=== PATIENT | male | born 1975 | race Caucasian/White ===

== ENCOUNTER → 2016-06-24 | Outpatient (CLI) | payer OTHER ==
--- NOTE | 2016-06-27 07:20 | ECHOCARDIOGRAPHY REPORT ---
DATE OF SERVICE: 06/24/2016 TEST DATE: 06/24/16 MEASUREMENT: LVID end diastolic 5.1 IVS thickness 1.0 LVPW thickness 1.0 Left atrial diameter 3.9 Ejection fraction 60%. FINDINGS: 1. Technical quality is good. 2. The left ventricle is normal in size with normal contractility, systolic function appeared to be normal. Estimated ejection fraction 60%. 3. The left atrium is normal in size. No clot or thrombus were seen within the left atrium. 4. The right atrium and right ventricle are normal in size. No clot or thrombus were seen within the right side. 5. Mitral valve is normal in morphology with mild mitral regurgitation noted by color Doppler flow. No mitral valve prolapse. No mitral valve stenosis. 6. Aortic valve is trileaflet with normal opening and closing pattern. No significant aortic stenosis or regurgitation was seen. 7. Tricuspid valve is normal in morphology with mild tricuspid regurgitation noted by color Doppler flow. Doppler across the tricuspid valve estimated pulmonary artery pressure of 25+ right atrial pressure. 8. Pulmonic valve is functioning normally. 9. No pericardial effusion. CONCLUSION: 1. Normal left ventricular size and systolic function, estimated ejection fraction 60%. 2. Mild mitral and tricuspid regurgitation. 3. Estimated pulmonary artery pressure of 35 mmHg. Job ID: [id number] DocumentID: [id number] Dictated Date: 06/26/2016 14:35:04 Senior Database Administrator Date: 06/26/2016 15:06:57 Dictated By: ACE BOSWELL MD
== END ==
LOC: CARD 15:03
PROVIDERS: ATTEND Internal Medicine Cardiovascular Disease
DX: I25.10 Atherosclerotic heart disease of native coronary artery without angina pectoris (principal); I10 Essential (primary) hypertension; E78.2 Mixed hyperlipidemia
CPT/HCPCS: 93306

== ENCOUNTER → 2016-07-01 | Outpatient (CLI) | payer OTHER ==
[~2016-07-01] VITALS: Ht 188 cm; Wt 145.1 kg
[~2016-07-01] MED LIST: CATHETER FLUSH 10 ML SYR IV PRN
[2016-07-01 09:17] VITALS: BP 133/78
--- NOTE | 2016-07-02 06:35 | STRESS TEST ---
DATE OF SERVICE: 07/01/2016 EXERCISE MYOVIEW STRESS TEST REFERRING PHYSICIAN: No referring physician. Baseline heart rate is 64. Baseline blood pressure 133/78. Baseline EKG is sinus rhythm with no ischemic changes. SUMMARY: The patient was injected with 10.25 mCi of technetium-99 Myoview and the resting images were obtained. Then, the patient started exercising with the baseline heart rate, blood pressure and EKG mentioned above. At minute 7 and 18 seconds, the patient was injected with 30.6 mCi of technetium-99 Myoview. The patient was able to exercise for a total of 8 minutes 20 seconds on standard Edgar protocol, achieving maximum heart rate of 153 which is 85% of maximum expected heart rate. With peak exercise level the EKG was showing nondiagnostic changes. Blood pressure was 214/102. During recovery, heart rate and blood pressure returned to baseline. EKG returned to baseline. The resting and stress images were reviewed and compared in the short axis, horizontal long axis and vertical long axis views. Review of the images showed diaphragmatic attenuation with no significant ischemia or infarction on SPECT images. There is mild decreased uptake at the mid to apical inferolateral wall which is fixed. SSS is 4. SDS 0. TID value is 0.89. On the Gated images, the left ventricle appeared to be normal size with normal contractility. Calculated ejection fraction 56%. CONCLUSION: 1. Good exercise tolerance a total of 8 minutes 20 seconds on standard Edgar protocol, total of 10.1 METS achieving 85% of maximum expected heart rate. 2. Severe hypertensive response to exercise returned to baseline during recovery. 3. Nondiagnostic EKG changes with exercise returned to baseline during recovery. 4. Typical male pattern with no significant ischemia or infarction on SPECT images. 5. Normal left ventricular size with normal contractility, calculated ejection fraction 56%. Job ID: [id number] DocumentID: [id number] Dictated Date: 07/01/2016 11:45:21 Manager Loan Date: 07/01/2016 14:06:17 Dictated By: ACE BOSWELL MD
== END ==
LOC: CARD 08:09
PROVIDERS: ATTEND Internal Medicine Cardiovascular Disease
DX: I25.10 Atherosclerotic heart disease of native coronary artery without angina pectoris (principal); I10 Essential (primary) hypertension; E78.2 Mixed hyperlipidemia
CPT/HCPCS: 78452; 93017

== ENCOUNTER → 2018-04-15 | Outpatient (CLI) | payer BC, OTHER ==
[~2018-04-15] VITALS: Ht 188 cm; Wt 150.6 kg
[~2018-04-15] MED LIST changes: +REGADENOSON 0.4 MG/5 ML SYR (LEXISCAN) IV ONE
--- NOTE | 2018-04-15 18:02 | STRESS TEST ---
DATE OF SERVICE: 04/15/2018 EXERCISE MYOVIEW STRESS TEST REPORT REFERRING PHYSICIAN: Dr. Gregorio's office. Baseline heart rate is 76. Baseline blood pressure is 138/74. Baseline EKG is sinus rhythm with right bundle branch block. In summary, the patient was injected with 10.37 mCi of technetium-99 Myoview and the resting images were obtained. Then, the patient started exercising with a baseline heart rate, blood pressure and EKG mentioned above. The patient was able to exercise for 7 minutes and 30 seconds on standard Edgar protocol. With peak exercise level, EKG was showing minimal nondiagnostic changes. Blood pressure was 200/90. During recovery, heart rate and blood pressure returned to baseline. EKG returned to baseline. The resting and stress images were reviewed and compared in the short axis, horizontal long axis, and vertical long axis views. Review of the images showed diaphragmatic attenuation with decreased uptake at the inferior wall and inferolateral wall with no significant reversibility on the attenuation correction images. There is mild decreased uptake at the inferior apical segment. SSS is 2, SDS 1, and TID value 0.96. On the gated images, the left ventricle appeared to be in normal size with normal contractility. Calculated ejection fraction is 60%. CONCLUSION: 1. Good exercise tolerance, a total of 7 minutes 30 seconds on standard Edgar protocol, total of 9.1 METs, achieving 97% of maximum expected heart rate. 2. Baseline hypertension persisted during the test. 3. Baseline right bundle branch block with nondiagnostic EKG changes with exercise returned to baseline during recovery. 4. Diaphragmatic attenuation with typical male pattern. No significant ischemia or infarction was noted on SPECT images. 5. Normal left ventricular size with normal contractility. Calculated ejection fraction is 60%. Job ID: [id number] DocumentID: [id number] Dictated Date: 04/15/2018 15:41:19 Senior Marketing Associate Date: 04/15/2018 18:01:49 Dictated By: ACE GREGORIO MD
== END ==
LOC: CARD 11:38
PROVIDERS: ATTEND Physician Assistant
DX: I25.10 Atherosclerotic heart disease of native coronary artery without angina pectoris (principal); I10 Essential (primary) hypertension; E78.2 Mixed hyperlipidemia; I21.3 ST elevation (STEMI) myocardial infarction of unspecified site
CPT/HCPCS: 78452; 93017

== ENCOUNTER → 2019-04-30 | Outpatient (CLI) | payer BC | LOC: CARD 12:45 | PROVIDERS: ATTEND Internal Medicine Cardiovascular Disease | DX: E78.2 Mixed hyperlipidemia (principal); I11.9 Hypertensive heart disease without heart failure; I25.10 Atherosclerotic heart disease of native coronary artery without angina pectoris; I34.0 Nonrheumatic mitral (valve) insufficiency; Z82.49 Family history of ischemic heart disease and other diseases of the circulatory system | CPT/HCPCS: 93306 ==

== ENCOUNTER 2019-12-20 12:17 | Outpatient (CLI) | payer BC | END 2019-12-20 12:53 | disposition home or self-care (01) | LOC: SLEEP 12:17 | PROVIDERS: ATTEND Internal Medicine Cardiovascular Disease | DX: G47.33 Obstructive sleep apnea (adult) (pediatric) (principal); G47.10 Hypersomnia, unspecified; I49.9 Cardiac arrhythmia, unspecified; I10 Essential (primary) hypertension; I25.10 Atherosclerotic heart disease of native coronary artery without angina pectoris; E78.2 Mixed hyperlipidemia; Z87.891 Personal history of nicotine dependence ==

== ENCOUNTER 2020-02-20 21:06 | Emergency (ER) | payer BC ==
[~2020-02-20] VITALS: Ht 188 cm; Wt 145.5 kg
--- NOTE | 2020-02-20 21:31 | ED Chest Pain ---
General Chief Complaint: Chest Pain Stated Complaint: COVID+;COUGH;CHEST TIGHTNESS;SOB Source: patient Exam Limitations: no limitations History of Present Illness Date Seen by Provider: Feb 20, 2020 Time Seen by Provider: 21:27 Initial Comments To ER by private vehicle with reports of chest tightness that lasted for about 20 to 30 seconds worse with deep breathing that started at home. It is gone now. No fevers. He is Covid positive and became symptomatic on 02/12/2020. He subsequently tested positive. He went to urgent care today and was given an albuterol inhaler. He was also given dexamethasone on , 02/14/2020. He states he has a history of a heart attack in 2006. He states that his EKG was normal but his troponin was markedly elevated. That was followed with a cardiac catheterization but he did not have any stents placed. He is otherwise healthy except for hypertension and follows with Dr. Gregorio. Timing/Duration: intermittent Severity/Quality: moderate Location: central Radiation: no radiation Activities at Onset: none Allergies and Home Medications Allergies Coded Allergies: No Known Drug Allergies (Unverified , 07/01/16) Patient Home Medication List Home Medication List Reviewed: Yes Review of Systems Review of Systems Constitutional: see HPI EENTM: No Symptoms Reported Respiratory: See HPI, Cough Cardiovascular: See HPI, Chest Pain Gastrointestinal: No Symptoms Reported Genitourinary: No Symptoms Reported Musculoskeletal: no symptoms reported Skin: no symptoms reported Psychiatric/Neurological: No Symptoms Reported Endocrine: No Symptoms Reported Physical Exam Vital Signs Capillary Refill : Height, Weight, BMI Height: 6'2.00" Weight: 332lbs. 0.0oz. [id number]; 42.6 BMI Method: General Appearance: No Apparent Distress, WD/WN, Obese, Other (Alert and oriented very pleasant no distress heart rate is in the 80s and oxygen saturation is 98% on room air after ambulating to room 10 from the [address] lot.) Neck: Full Range of Motion, Normal Inspection Respiratory: Normal Breath Sounds, No Accessory Muscle Use, No Respiratory Distress Cardiovascular: Regular Rate, Rhythm, Normal Peripheral Pulses Gastrointestinal: Normal Bowel Sounds, Non Tender, Soft Extremity: Normal Capillary Refill, Normal Inspection Neurologic/Psychiatric: Alert, Oriented x3 Skin: Normal Color, Warm/Dry Progress/Results/Core Measures Results/Orders My Orders Orders - KEVEN COLORADO APRN Cbc With Automated Diff (02/20/20 21:25) Comprehensive Metabolic Panel (02/20/20 21:25) Procalcitonin (Pct) (02/20/20 21:25) Hs C Reactive Protein (02/20/20 21:25) Troponin I (02/20/20 21:25) Ekg Tracing (02/20/20 21:25) Chest 1 View, Ap/Pa Only (02/20/20 21:25) Ed Iv/Invasive Line Start (02/20/20 21:25) Departure Impression Primary Impression: Chest pain Additional Impression: COVID-19 Disposition: HOME, SELF-CARE Condition: Stable Departure-Patient Inst. Decision time for Depature: 21:30 Referrals: NO,LOCAL PHYSICIAN (PCP/Family) Primary Care Physician Patient Instructions: Coronavirus Disease 2019 (COVID-19) ED Add. Discharge Instructions: 1. Continue current treatment regimen. Return to ER for any worsening. Follow-up with your doctor next week. All discharge instructions reviewed with patient and/or family. Voiced understanding. KEVEN COLORADO APRN Feb 20, 2020 21:31
[2020-02-20 21:44] LABS: BASOPHILS % (AUTO) 0 % (0-10); EOSINOPHILS % (AUTO) 0 % (0-10); HEMATOCRIT 47 % (40-54); HEMOGLOBIN 15.9 g/dL (13.3-17.7); LYMPHOCYTES # (AUTO) 2.5 10^3/uL (1.0-4.0); LYMPHOCYTES % (AUTO) 21 % (12-44); MEAN CORPUSCULAR HEMOGLOBIN 31 pg (25-34); MEAN CORPUSCULAR HGB CONC 34 g/dL (32-36); MEAN CORPUSCULAR VOLUME 89 fL (80-99); MEAN PLATELET VOLUME 8.5 fL (9.0-12.2); MONOCYTES # (AUTO) 1.4 10^3/uL (0.0-1.0); MONOCYTES % (AUTO) 12 % (0-12); NEUTROPHILS # (AUTO) 7.9 10^3/uL (1.8-7.8); NEUTROPHILS % (AUTO) 66 % (42-75); PLATELET COUNT 347 10^3/uL (130-400); WHITE BLOOD COUNT 11.9 10^3/uL (4.3-11.0)
[2020-02-20 22:06] LABS: ALANINE AMINOTRANSFERASE 33 U/L (0-55); ALBUMIN 4.3 GM/DL (3.2-4.5); ALKALINE PHOSPHATASE 68 U/L (40-136); BILIRUBIN,TOTAL 0.5 MG/DL (0.1-1.0); BUN/CREATININE RATIO 15; CALCIUM 8.9 MG/DL (8.5-10.1); CARBON DIOXIDE 25 MMOL/L (21-32); CHLORIDE 102 MMOL/L (98-107); GFR ESTIMATED > 60; GLUCOSE 112 MG/DL (70-105); POTASSIUM 4.4 MMOL/L (3.6-5.0); SODIUM 138 MMOL/L (135-145); TOTAL PROTEIN 8.5 GM/DL (6.4-8.2)
[2020-02-20 22:50] VITALS: BP 141/61
--- NOTE | 2020-02-21 06:14 | Diagnostic Imaging Report ---
INDICATION: Chest pain COMPARISON: None FINDINGS: Single view of the chest demonstrates trace effusion in the right costophrenic angle. The left lung is clear. The heart is normal. There is no pneumothorax. Questionable atelectasis is seen in the right base. Follow-up is recommended. Osseous structures normal. IMPRESSION: Probable atelectasis right base with small effusion. Follow-up recommended. Dictated by: Dictated on workstation # [id number]
== END 2020-02-20 22:50 | disposition home or self-care (01) ==
LOC: EDUNIT# 21:06 → ER 21:09
DX: U07.1 COVID-19 (principal); E66.9 Obesity, unspecified; I25.2 Old myocardial infarction; Z68.41 Body mass index [BMI] 40.0-44.9, adult
CPT/HCPCS: 36415; 71045; 80053; 84145; 84484; 85025; 86141; 93005